=== PATIENT | male | born 1960 | race African-American/Black ===

== ENCOUNTER 2016-11-26 18:42 | Emergency (ER) | payer MEDICAID ==
[2016-11-26 18:55] VITALS: BMI 24.3
[2016-11-26 19:00] VITALS: TEMP 98.4
[2016-11-26 19:22] LABS: AUTOMATED BASOPHIL 0.7 % (0-2); AUTOMATED EOSINOPHIL 3.3 % (0-5); AUTOMATED LYMPH 32.4 % (17-44); AUTOMATED MONOCYTE 9.1 % (3-10); AUTOMATED NEUTROPHIL 54.5 % (45-76)
[2016-11-26 19:23] LABS: BLOOD UREA NITROGEN 15 MG/DL (9-20); CALC CORRECTED 9.2 MG/DL (8.4-10.2); CALCIUM 9.1 MG/DL (8.4-10.2); CALCULATED OSMOLALITY 274 MOs/Kg (270-290); CHLORIDE 105 mEq/L (98-107); GLUCOSE 97 MG/DL (70-99); SODIUM LEVEL 142 mEq/L (137-146)
[2016-11-26] MEDS ORDERED: NITROGLYCERINE 2 % OINTMENT PACK TOP STA (19:26)
[2016-11-26 19:29] LABS: PARTIAL THROMB. TIME 29.4 SEC (22-35); PT-INR 1.1
--- NOTE | 2016-11-26 19:29 | DIRPT ---
CLINICAL DATA: Left-sided chest pain since yesterday. EXAM: CHEST 2 VIEW COMPARISON: 09/10/2014 FINDINGS: Patient is post median sternotomy. Heart size and mediastinal contours are normal. Cardiac stent is in place. No pulmonary edema, confluent airspace disease, pleural effusion or pneumothorax. No acute osseous abnormalities. IMPRESSION: Post CABG and coronary artery stenting. No acute process. Electronically Signed By: Tracy Mcginnis M.D. On: 11/26/2016 19:26
[2016-11-26] MEDS: NITROGLYCERINE 0.4 MG TAB SL STA ×3 (19:30→19:40)
--- NOTE | 2016-11-26 19:32 | EDPRACDOC ---
- General Information Chief Complaint: Chest Pain Stated Complaint: CHEST DISCOMFORT Time Seen by Provider: 11/26/16 19:18 Information Source: Patient Mode of Arrival: Car Home Medications: Home Medications Aspirin [Aspirin, Chewable] 81 mg PO DAILYWM #100 tablet 09/12/14 Atorvastatin Calcium [Lipitor] 80 mg PO HS #30 tablet 09/12/14 Clopidogrel Bisulfate [Plavix] 75 mg PO DAILY #30 tab 09/12/14 Lisinopril [Zestril] 5 mg PO BID #60 tablet 09/12/14 Metoprolol Tartrate [Lopressor] 25 mg PO BID #60 tablet 09/12/14 Nitroglycerin [Nitrostat] 0.4 mg SL [id number] PRN #100 tab.subl 09/12/14 Allergies/Adverse Reactions: Allergies Allergy/AdvReac Type Severity Reaction Status Date / Time No Known Allergies Allergy Verified 11/26/16 18:52 - History of Present Illness Onset: yesterday HPI: PT PRESENTS WITH LEFT CHEST TIGHTNESS THAT BEGAN YESTERDAY AND HAS PERSISTED TODAY. HAD A STRESS TEST [address] LYNN WHICH WAS NOT ABNORMAL PER PATIENT AND FAMILY. Chest Pain Location: Reports: Left Chest Pain Radiation: Reports: None Symptoms Occur: Reports: At Rest Cardiac Risk Factors: Reports: Hyperlipidemia, Hypertension Cardiac History of: Reports: SC, CABG Medications within 24 Hours: Reports: Aspirin Prehospital Care: Reports: ASA Pain Status: Present Now Pain Description: Reports: Tightness Pain Severity: Mild Pain Worsens With: Reports: Nothing Pain Improves With: Reports: Nothing Associated Signs and Symptoms: Denies: SOB, Palpitations, Diaphoretic, Abdominal Pain, Nausea, Vomiting ED Past Medical History - History Reviewed Yes Nurses notes reviewed and agree except as marked - Patient Medical History Neurological History: Denies: Cerebrovascular Accident, Seizures, Migraine, Dementia Cardiac History: Reports: Coronary Artery Disease, Hypertension, Heart Attack ( 08/2014), Cardiac Catheterization (2012), CABG, Hypercholesterolemia Respiratory History: Denies: Bronchitis, Asbestosis, Aspiration Pneumonia, Cough , Chronic Bronchitis GI/ History: Reports: Kidney Stones (current; knows it needs to be removed. Had one in the past.), Gastroesophageal Reflux (On Prilosec) Musculoskeletal History: Reports: Arthritis (ELBOWS, HANDS, KNEES NOT DIAGNOSED) . Denies: Rheumatoid Arthritis Psychological History: Denies: Depression, Anxiety, Schizophrenia, Bipolar Disorder, Substance Use Disorder Systemic History: Reports: Anemia. Denies: Cancer, Diabetes, HIV, Lupus Surgical History: Reports: CABG, Cardiac Catheterization (2013) - Family Medical History Reports: Hypertension (MOTHER), Stroke (MOTHER). Denies: Diabetes, Cancer, Cardiac Disorders - Social Medical History Smoking Status: Light tobacco smoker (less than 5/day) Social History: Denies: Substance Use Disorder Lives In: Home EDM Review of Systems - Review of Systems ROS Negative Except as Marked: Yes All systems reviewed and were negative except as marked Constitutional: negative: Fever Respiratory: negative: Shortness of Breath Cardiovascular: Chest Pain. negative: Edema, Palpitations, Syncope Gastrointestinal: negative: Nausea, Pain, Vomiting - Physical Exam Constitutional: Alert Oriented to: Time, Person, Place Last recorded Vital Signs: Last Vital Signs Temp 98.4 F 11/26/16 18:58 Pulse 82 11/26/16 19:25 Resp 18 11/26/16 19:15 BP 202/99 H 11/26/16 19:15 Pulse Ox 95 11/26/16 19:15 Oxygen Pulse Oxygen Saturation 95 O2 Device Room Air Oxygen Flow Rate Fraction of Inspired Oxygen ( FIO2) - HEENT Head: negative: Deformity, Laceration Eye Exam: negative: Conjunctival Injection, Pale Conjunctiva Oropharynx: negative: Membranes Dry Nose: negative: Congestion, Discharge Neck: negative: Limited ROM - Respiratory/Cardiovascular Respiratory: Normal - CTA. negative: Accessory Muscle Use, Diminished, Tachypnea Cardiovascular: negative: Bradycardia, Tachycardia, Irregular - GI Auscultation: Normal Palpation: Normal Tenderness: Non tender - Musculoskeletal Extremities: Radial Pulse (PALPABLE) - Integumentary Skin: Warm, Dry. negative: Rash - Neurologic Memory Impaired: Normal Motor Function: Normal Mood Description: Anxious, Appropriate Thought: Coherent Perception: Normal ED Chest Pain Exam - Respiratory/Cardiovascular Chest Palpation: negative: Tender, Reproduces Pain - Action Patient received Aspirin within last 24 hours?: Yes ASA given in the ED: No Aspirin therapy held due to: Other-specify below* (PT TOOK ASPIRIN AND PLAVIX AT HOME TODAY.) - Results 11/26/16 18:58 11/26/16 18:58 WBC 4.0 xk/uL (3.8-10.8) 11/26/16 18:58 RBC 4.26 xM/uL (4.70-6.10) L 11/26/16 18:58 Hgb 11.7 g/dL (14.0-18.0) L 11/26/16 18:58 Hct 36.2 % (42-52) L 11/26/16 18:58 MCV 85 fL (80-94) 11/26/16 18:58 MCH 27.5 pg (27-32) 11/26/16 18:58 MCHC 32.4 g/dl (33-36) L 11/26/16 18:58 RDW 14.7 % (11.5-14.5) H 11/26/16 18:58 Plt Count 265 xk/uL (130-400) 11/26/16 18:58 MPV 8.0 fL (7.4-10.4) 11/26/16 18:58 Neut % (Auto) 54.5 % (45-76) 11/26/16 18:58 Lymph % (Auto) 32.4 % (17-44) 11/26/16 18:58 [place] % (Auto) 9.1 % (3-10) 11/26/16 18:58 Eos % (Auto) 3.3 % (0-5) 11/26/16 18:58 Baso % (Auto) 0.7 % (0-2) 11/26/16 18:58 Absolute Neuts (auto) 2.16 xk/uL (1.7-8.2) 11/26/16 18:58 Absolute Lymphs (auto) 1.28 xk/uL (0.65-4.75) 11/26/16 18:58 Lab Results 11/26/16 18:58 WBC 4.0 RBC 4.26 L Hgb 11.7 L Hct 36.2 L MCV 85 MCH 27.5 MCHC 32.4 L RDW 14.7 H Plt Count 265 MPV 8.0 Neut % (Auto) 54.5 Lymph % (Auto) 32.4 [place] % (Auto) 9.1 Eos % (Auto) 3.3 Baso % (Auto) 0.7 Absolute Neuts (auto) 2.16 Absolute Lymphs (auto) 1.28 Laboratory Results - last 24 hr 11/26/16 18:58 WBC 4.0 RBC 4.26 L Hgb 11.7 L Hct 36.2 L MCV 85 MCH 27.5 MCHC 32.4 L RDW 14.7 H Plt Count 265 MPV 8.0 Neut % (Auto) 54.5 Lymph % (Auto) 32.4 [place] % (Auto) 9.1 Eos % (Auto) 3.3 Baso % (Auto) 0.7 Absolute Neuts (auto) 2.16 Absolute Lymphs (auto) 1.28 Laboratory Results 11/26/16 18:58 - EKG EKG #1 EKG Time: 18:56 -: Yes EKG interpreted by me Rate: bpm: 82 Rhythm: NSR Block: IVCD ST: Nonsp Decision Time to Discharge: 20:43 - Departure Yes I personally saw and evaluated the patient. Disposition: Home Condition: Stable Final Diagnosis: Chest pain Qualifiers: Chest pain type: unspecified Qualified Code(s): R07.9 - Chest pain, unspecified Instructions: Chest Pain (ED), Chest Wall Pain Education/Counseling Given To: Patient, Family Member Education/Counseling Given Regarding: Diagnosis, Treatment, Prognosis, Follow Up Referrals: None,No Provider [Primary Care Provider] - Call for Appointment Additional Instructions: CONTINUE YOUR HOME MEDICATIONS.
[2016-11-26 21:04] VITALS: BP 151/75; PULSE 78
== END 2016-11-26 21:01 | disposition home or self-care (01) ==
LOC: ED 18:42
DX: R07.9 Chest pain, unspecified (principal); I25.10 Atherosclerotic heart disease of native coronary artery without angina pectoris; I10 Essential (primary) hypertension; E78.00 Pure hypercholesterolemia, unspecified; K21.9 Gastro-esophageal reflux disease without esophagitis; F17.210 Nicotine dependence, cigarettes, uncomplicated; I25.2 Old myocardial infarction; Z79.899 Other long term (current) drug therapy; Z79.82 Long term (current) use of aspirin
CPT/HCPCS: 36415; 71020; 80053; 83880; 84484; 85025; 85610; 85730; 93005; 99285; J3490